=== PATIENT | female | born 1965 | race Caucasian/White ===

== ENCOUNTER 2016-06-16 19:23 | Emergency (ER) | payer MEDICAID ==
[~2016-06-16] VITALS: Ht 162.6 cm; Wt 67.0 kg
[~2016-06-16 19:23] MED LIST: AMLO10TA4 PO; HYDR25TA PO; LORA10TA7 PO; MEDR10TA11 PO; POTA10CA42 PO; UNKNOWN B/P MED
[2016-06-17] MEDS ORDERED: KETOROLAC 60MG/2ML VIAL IM ONE (02:15)
[2016-06-17] MEDS ORDERED: DEXAMETHASONE 10MG/ML 1ML VIAL IM ONE (02:15)
[2016-06-17 05:19] VITALS: BP 135/76
== END 2016-06-17 05:20 | disposition home or self-care (01) ==
LOC: ER 19:45
DX: J02.9 Acute pharyngitis, unspecified (principal); J06.9 Acute upper respiratory infection, unspecified; H92.03 Otalgia, bilateral; R09.81 Nasal congestion; R51 Headache; I10 Essential (primary) hypertension; K21.9 Gastro-esophageal reflux disease without esophagitis; Z87.19 Personal history of other diseases of the digestive system
CPT/HCPCS: 81025; 96372; 99284; J1100; J1885

== ENCOUNTER 2016-06-28 14:36 | Emergency (ER) | payer MEDICAID ==
[~2016-06-28] VITALS: Ht 167.6 cm; Wt 82.0 kg
[2016-06-28] MEDS ORDERED: PENICILLIN (14:57)
[2016-06-28 15:41] LABS: CLARITY URINE CLOUDY (CLEAR); COLOR URINE YELLOW (YELLOW); GLUCOSE URINE NEGATIVE (NEGATIVE); KETONES URINE NEGATIVE (NEGATIVE); LEUKOCYTE ESTERASE URINE 3+ (NEGATIVE); NITRITE URINE NEGATIVE (NEGATIVE); OCCULT BLOOD URINE 3+ (NEGATIVE); PH URINE 6.5 (4.5-8.0); PROTEIN URINE 1+ (NEGATIVE); SPECIFIC GRAVITY URINE 1.004 (1.005-1.030); UROBILINOGEN URINE 0.2 E.U./dL (0.2-1.0)
[2016-06-28] MEDS ORDERED: LEVOFLOXACIN 500MG TABLET PO ONE (16:00)
[2016-06-28] MEDS ORDERED: IBUPROFEN 800MG TABLET PO ONE (16:00)
[2016-06-28 16:12] LABS: SQUAMOUS EPITHELIAL CELL URINE FEW /lpf (RARE/1+)
[2016-06-28 16:13] LABS: BACTERIA URINE 1+; WBC URINE TNTC /hpf (0-2)
[2016-06-28 16:44] VITALS: BP 128/61
== END 2016-06-28 19:51 | disposition home or self-care (01) ==
LOC: ER 19:51
DX: N39.0 Urinary tract infection, site not specified (principal); Z79.899 Other long term (current) drug therapy; K21.9 Gastro-esophageal reflux disease without esophagitis; I10 Essential (primary) hypertension
CPT/HCPCS: 81001; 81025; 99283

== ENCOUNTER 2017-04-26 15:47 | Emergency (ER) | payer MEDICAID ==
[~2017-04-26] VITALS: Ht 157.5 cm; Wt 85.8 kg
[~2017-04-26 15:47] MED LIST changes: -AMLO10TA4 PO; -HYDR25TA PO; -LORA10TA7 PO; -MEDR10TA11 PO; +PENICILLIN; -POTA10CA42 PO; -UNKNOWN B/P MED
[2017-04-26] MEDS ORDERED: PREDNISONE 20MG TABLET PO ONE (17:00)
[2017-04-26] MEDS ORDERED: IBUPROFEN 400MG TABLET PO ONE (17:00)
[2017-04-26] MEDS ORDERED: POLYETHYLENE GLYCOL 3350 (17GM) 1 DOSE PACK PO ONE (18:15)
[2017-04-26 18:47] VITALS: BP 140/79
== END 2017-04-26 18:49 | disposition home or self-care (01) ==
LOC: ER 15:56
DX: J02.9 Acute pharyngitis, unspecified (principal); K59.00 Constipation, unspecified; I10 Essential (primary) hypertension
CPT/HCPCS: 74018; 99284; J7512

== ENCOUNTER 2018-02-28 16:52 | Emergency (ER) | payer MEDICAID ==
[~2018-02-28] VITALS: Ht 162.6 cm; Wt 82.0 kg
[2018-02-28 17:16] VITALS: BP 167/89
[2018-02-28] MEDS ORDERED: IBUPROFEN 600MG TABLET PO ONE (18:45)
== END 2018-02-28 22:30 | disposition home or self-care (01) ==
LOC: ER 22:28
DX: K08.89 Other specified disorders of teeth and supporting structures (principal); I10 Essential (primary) hypertension; Z98.51 Tubal ligation status
CPT/HCPCS: 99282

== ENCOUNTER 2018-11-20 08:56 | Emergency (ER) | payer MEDICAID ==
[~2018-11-20] VITALS: Ht 154.9 cm; Wt 81.0 kg
[2018-11-20 12:00] VITALS: BP 144/91
== END 2018-11-20 12:00 | disposition home or self-care (01) ==
LOC: ER 09:15
DX: S40.862A Insect bite (nonvenomous) of left upper arm, initial encounter (principal); S40.861A Insect bite (nonvenomous) of right upper arm, initial encounter; S80.862A Insect bite (nonvenomous), left lower leg, initial encounter; S80.861A Insect bite (nonvenomous), right lower leg, initial encounter; I10 Essential (primary) hypertension; Z98.51 Tubal ligation status; W57.XXXA Bitten or stung by nonvenomous insect and other nonvenomous arthropods, initial encounter; Y93.89 Activity, other specified; Y92.018 Other place in single-family (private) house as the place of occurrence of the external cause
CPT/HCPCS: 99282

== ENCOUNTER 2020-05-25 16:53 | Emergency (ER) | payer MEDICAID ==
[~2020-05-25] VITALS: Ht 162.6 cm; Wt 77.0 kg
[2020-05-25] MEDS ORDERED: HYDR12.54 PO (17:08)
[2020-05-25] MEDS ORDERED: CLONIDINE 0.2MG TABLET PO ONE (17:45)
[2020-05-25 18:05] LABS: BASOPHILS % 0.5 % (0.0-2.0); EOSINOPHILS % 1.9 % (0.0-5.0); HEMOGLOBIN. 13.1 g/dL (12.0-16.0); LYMPHOCYTES % 26.1 % (20.0-50.0); MEAN CORPUSCULAR HEMOGLOBIN 27.6 pg (28.0-32.0); MEAN CORPUSCULAR VOLUME 81.9 fL (81.0-99.0); MEAN PLATELET VOLUME 9.2 fl (7.4-10.4); MONOCYTES % 5.7 % (2.0-8.0); NEUTROPHILS % 65.8 % (40.0-76.0); PLATELET 259 x1000/uL (130-400); RED BLOOD CELL COUNT 4.76 mill/uL (4.2-5.4); RED CELL DISTRIBUTION WIDTH 13.4 % (11.6-14.6)
[2020-05-25 18:11] LABS: CHLORIDE 104 mEq/L (98-107)
[2020-05-25] MEDS ORDERED: AMLO5TAB88 MT (20:27)
[2020-05-25] MEDS ORDERED: POTASSIUM CHLORIDE 20MEQ TABLET SR PO ONE (20:30)
[2020-05-25 21:54] VITALS: BP 129/79
== END 2020-05-25 22:00 | disposition home or self-care (01) ==
LOC: ER 16:53
DX: I63.9 Cerebral infarction, unspecified (principal); I10 Essential (primary) hypertension; F41.9 Anxiety disorder, unspecified; Z98.51 Tubal ligation status
CPT/HCPCS: 36415; 80048; 85025; 93005; 99284

== ENCOUNTER 2020-10-18 06:01 | Emergency (ER) | payer MEDICAID ==
[~2020-10-18] VITALS: Ht 149.9 cm; Wt 76.4 kg
[~2020-10-18 06:01] MED LIST changes: +AMLO5TAB88 MT; +HYDR12.54 PO
[2020-10-18] MEDS ORDERED: IBUPROFEN 600MG TABLET PO ONE (06:45)
[2020-10-18 07:04] LABS: CLARITY URINE CLOUDY (CLEAR); COLOR URINE YELLOW (YELLOW); KETONES URINE NEGATIVE (NEGATIVE); LEUKOCYTE ESTERASE URINE 3+ (NEGATIVE); NITRITE URINE NEGATIVE (NEGATIVE); OCCULT BLOOD URINE 2+ (NEGATIVE); PH URINE 6.5 (4.5-8.0); PROTEIN URINE 2+ (NEGATIVE); SPECIFIC GRAVITY URINE 1.016 (1.005-1.030); UROBILINOGEN URINE 0.2 E.U./dL (0.2-1.0)
[2020-10-18] MEDS ORDERED: CEPH500C2 MT (07:12)
[2020-10-18 08:02] VITALS: BP 143/82
== END 2020-10-18 08:03 | disposition home or self-care (01) ==
LOC: ER 06:01
DX: N30.00 Acute cystitis without hematuria (principal); I10 Essential (primary) hypertension; Z98.51 Tubal ligation status
CPT/HCPCS: 81003; 87077; 87186; 99283